=== PATIENT | male | born 1980 ===

== ENCOUNTER 2021-11-24 22:38 | Emergency (ER) | payer OTHER, SELFPAY ==
[2021-11-24 22:51] VITALS: BP 180/108; PULSE 78; RESP 20; TEMP 35.6; O2SAT 96; BMI 39.0
[2021-11-24] MEDS: ONDANSETRON 4 MG/2 ML INJ IV (23:02)
[2021-11-24 23:14] LABS: Add Manual Diff / Slide Review NO; Basophils Absolute Auto 100 /uL (0-100); Basophils Percent Auto 0.5 % (0-2); Eosinophils Absolute Auto 0 /uL (0-450); Eosinophils Percent Auto 0.4 % (2-4); Hematocrit 43.3 % (41-53); Hemoglobin 14.5 g/dL (13.5-17.5); Lymphocytes Absolute Auto 1400 /uL (1100-4500); Mean Corpuscular HGB Conc 33.5 % (30-36); Mean Corpuscular Hemoglobin 27.9 PG (26-34); Mean Corpuscular Volume 83.3 fL (80-100); Monocytes Absolute Auto 1000 /uL (0-900); Neutrophils Absolute Auto 8200 /uL (1500-7000); Neutrophils Percent Auto 77.1 % (50-75); Platelet Count 188 X10^3/uL (150-400); Red Cell Distribution Width 14.7 % (11.6-14.8); White Blood Cell Count 10.6 X10^3/uL (4.5-11.0)
[2021-11-24 23:24] LABS: Alanine Aminotransferase 69 IU/L (<50); Albumin 4.7 g/dL (3.5-5.0); Albumin Globulin Ratio 1.3 (1.0-2.8); Alkaline Phosphatase 94 U/L (38-126); Aspartate Aminotransferase 50 IU/L (17-59); BUN Creatinine Ratio 12.4 (6-22); Bilirubin Total 0.5 mg/dL (0.2-1.3); Blood Urea Nitrogen 15 mg/dL (9-20); Calcium 9.9 mg/dL (8.4-10.2); Carbon Dioxide 29 mmol/L (22-32); Chloride 106 mmol/L (98-107); Estimated Glomerular Filt Rate > 60.0 mL/min (>60); Globulin 3.7 g/dL (1.7-4.1); Glucose 94 mg/dL (70-100); HEMOLYSIS < 15 (0-50); Lipase 135 U/L (23-300); Sodium 140 mmol/L (137-145); Total Protein 8.4 g/dL (6.3-8.2)
--- NOTE | 2021-11-24 23:27 | ED.GENADULT ---
HPI - General Adult General Chief complaint: Abdominal Pain Stated complaint: LT. LOWER QUAD PAIN Time Seen by Provider: 11/24/21 23:23 Source: patient Mode of arrival: Ambulatory History of Present Illness HPI narrative: Patient is a 40-year-old male who is here for evaluation of left lower quadrant abdominal pain. Patient states that his symptoms started at approximately 0200 hours this afternoon. It is somewhat difficult for him to describe his [place] is not his 1st language. He stated that was somewhat of a sudden onset. He has had a kidney stone in the past and this feels like kidney stone. No fevers. No vomiting. Related Data Previous Rx's Medication Instructions Recorded tamsulosin 0.4 mg capsule (Flomax) 0.4 mg PO DAILY #7 cap 11/25/21 Allergies Allergy/AdvReac Type Severity Reaction Status Date / Time aspirin AdvReac Verified 11/24/21 22:51 Review of Systems Constitutional Constitutional: Denies fever(s) Gastrointestinal Gastrointestinal: Reports as per HPI and Reports system reviewed and no additional complaints, except as documented Genitourinary Genitourinary: Denies dysuria Integumentary/Breasts Skin/Breast: Denies rash Hematologic/Lymphatic On Anticoagulants: No Patient History Medical History Kidney stones Social History Smoking Status: Never smoker Smoking Status: Never smoker Substance Use Type: does not use Exam Initial Vital Signs Initial Vital Signs: Vital Signs Temperature 96.1 F L 11/24/21 22:51 Pulse Rate 78 11/24/21 22:51 Respiratory Rate 20 11/24/21 22:51 Blood Pressure 180/108 H 11/24/21 22:51 Pulse Oximetry 96 11/24/21 22:51 HENMT Head: normal to inspection and normocephalic Resp Effort & Inspection: normal respiratory effort Cardio Rate: regular rate GI Inspection: non-distended Palpation: soft and No tender Skin General: no rashes or lesions noted Neuro General: patient alert, patient awake and moves all extremities Extrem General: normal to inspection Course Orders Ordered: ED Orders 11/24/21 22:54 Complete Blood Count AUTO DIFF Stat Comprehensive Metabolic Panel Stat Lipase Stat 11/24/21 22:56 EKG-12 Lead Stat Discontinued Medications Hydrocodone Bitart/Acetaminophen (Hydrocodone/Acet 5/325 Prepack) 1 bottle MISC SEEINSTR ONE Stop: 11/25/21 01:29 Hydromorphone HCl (Hydromorphone 1 Mg Inj) 1 mg IV NOW ONE Stop: 11/24/21 23:27 Last Admin: 11/24/21 23:33 Dose: 1 mg Documented by: RAMAKRISHNA Ketorolac Tromethamine (Ketorolac 30 Mg/Ml Vial) 30 mg IV NOW ONE Stop: 11/24/21 23:27 Last Admin: 11/24/21 23:33 Dose: 30 mg Documented by: RAMAKRISHNA Ondansetron HCl (Ondansetron 4 Mg/2 Ml Inj) 4 mg IV NOW ONE Stop: 11/24/21 22:56 Last Admin: 11/24/21 23:02 Dose: 4 mg Documented by: RAMAKRISHNA Ondansetron HCl (Ondansetron 4 Mg Odt Prepack) 1 bottle MISC SEEINSTR ONE Stop: 11/25/21 01:29 Vital Signs Vital signs: Vital Signs - 8 hr 11/24/21 22:51 Temperature 96.1 F L Pulse Rate 78 Respiratory Rate 20 Blood Pressure 180/108 H Pulse Oximetry 96 Medical Decision Making Lab Data Result diagrams: 11/24/21 22:54 11/24/21 22:54 Labs: Lab Results 11/24/21 11/24/21 Range/Units 22:54 22:54 WBC 10.6 (4.5-11.0) X10^3/uL RBC 5.20 (4.5-5.9) X10^6/uL Hgb 14.5 (13.5-17.5) g/dL Hct 43.3 (41-53) % MCV 83.3 (80-100) fL MCH 27.9 (26-34) PG MCHC 33.5 (30-36) % RDW 14.7 (11.6-14.8) % Plt Count 188 (150-400) X10^3/uL Neut % (Auto) 77.1 H (50-75) % Lymph % (Auto) 13.0 L (25-40) % [place] % (Auto) 9.0 (3-14) % Eos % (Auto) 0.4 L (2-4) % Baso % (Auto) 0.5 (0-2) % Neut # (Auto) 8200 H (5521-7902) /uL Lymph # (Auto) 1400 (6182-5488) /uL [place] # (Auto) 1000 H (0-900) /uL Eos # (Auto) 0 (0-450) /uL Baso # (Auto) 100 (0-100) /uL Sodium 140 (137-145) mmol/L Potassium 4.0 (3.4-5.1) mmol/L Chloride 106 (98-107) mmol/L Carbon Dioxide 29 (22-32) mmol/L BUN 15 (9-20) mg/dL Creatinine 1.21 (0.66-1.25) mg/dL Estimated GFR > 60.0 (>60) mL/min BUN/Creatinine Ratio 12.4 (6-22) Glucose 94 (70-100) mg/dL Calcium 9.9 (8.4-10.2) mg/dL Total Bilirubin 0.5 (0.2-1.3) mg/dL AST 50 (17-59) IU/L ALT 69 H (<50) IU/L Alkaline Phosphatase 94 (38-126) U/L Total Protein 8.4 H (6.3-8.2) g/dL Albumin 4.7 (3.5-5.0) g/dL Globulin 3.7 (1.7-4.1) g/dL Albumin/Globulin Ratio 1.3 (1.0-2.8) Lipase 135 (23-300) U/L Urine Dip Bedside Urine Glucose Negative Bedside Urine Bilirubin - Negative Bedside Urine Ketone + 15 Urine Specific [place] 1.030 Bedside Urine Occult Blood +++ Bedside Urine pH 6.0 Bedside Urine Protein - Negative Bedside Urine Urobilinogen - Negative Bedside Urine Nitrite - Negative Bedside Urine Leukocytes - Negative Esterase Point of care testing: Urine Dip Bedside Urine Glucose Negative Bedside Urine Bilirubin - Negative Bedside Urine Ketone + 15 Urine Specific [place] 1.030 Bedside Urine Occult Blood +++ Bedside Urine pH 6.0 Bedside Urine Protein - Negative Bedside Urine Urobilinogen - Negative Bedside Urine Nitrite - Negative Bedside Urine Leukocytes - Negative Esterase MDM Narrative Medical decision making narrative: Patient has a history of kidney stones kidney functions unremarkable. Has blood in his urine but no signs of infection. He states this feels like prior stone. I feel that we can hold on radiologic studies for now to confirm this given his history. He did feel better after medications provided above. Was sent home with symptom control. Was given return precautions and follow-up instructions. He expressed understanding and agreement. Discharge Plan Departure Patient Disposition: Home Clinical Impression: Kidney stones Instructions: DI for Kidney Stones Activity Restrictions/Additional Instructions: Take all the medications as directed. Be sure to increase your fluid intake. Return to the emergency department for any new or worsening symptoms. Prescriptions: New tamsulosin [Flomax] 0.4 mg capsule 0.4 mg PO DAILY Qty: 7 0RF
[2021-11-24] MEDS: KETOROLAC 30 MG/ML VIAL IV (23:33)
[2021-11-24] MEDS: HYDROMORPHONE 1 MG INJ IV (23:33)
[2021-11-25] MEDS: ONDANSETRON 4 MG ODT PREPACK 1 BOTTLE MISC (01:48)
[2021-11-25] MEDS: HYDROCODONE/ACET 5/325 PREPACK 1 BOTTLE MISC (01:48)
[2021-11-25 01:52] VITALS: TEMP 35.9
== END 2021-11-25 01:53 | disposition home or self-care (01) ==
PROVIDERS: Emergency Provider Emergency Medicine
DX: N20.0 Calculus of kidney (principal)
CPT/HCPCS: 36415; 80053; 81003; 83690; 85025; 96374; 96375; 99284; J1170; J1885; J2405